=== PATIENT | male | born 1970 | race Caucasian/White ===

== ENCOUNTER 2017-01-17 13:27 | Emergency (ER) ==
[2017-01-17 13:39] VITALS: BP 145/90; TEMP 98.4; BMI 33.9
[2017-01-17] MEDS ORDERED: ZOFRAN ODT PO STA (13:55)
[2017-01-17] MEDS ORDERED: SILVADENE CREAM TP STA (13:55)
[2017-01-17] MEDS ORDERED: MORPHINE 4 MG/ML SYRINGE IVP STA (13:55)
--- NOTE | 2017-01-17 13:57 | ED.PDOC ---
General ED Provider: Dr. PARISH SOLORZANO Chief Complaint: Burn Stated Complaint: Patient is a 46 year old who while making elderberry jelly and juice its hot contents dripped onto the top of ther right foot. He was wareing sandels. He states that it formed a blister immediatly, he soaked the foot in cold water and cut off the skin fromt he wound and applied Triple antibiotics ointment and applied dressing on it. Time Seen by Physician: 13:30 Mode of Arrival: Walk-In Information Source: Patient Exam Limitations: No limitations Nursing and Triage Documentation Reviewed and Agree: Yes Skin Complaint Exam - Burn Injury Complaint/Exam Onset/Duration: 1 hour Length Of Exposure: secs Initial Severity: Severe Current Severity: Severe Character: Scald Associated Signs and Symptoms: Denies: Short of air, Cough, Chest pain, Vision abnormality, LOC/Duration, Additional trauma Related History: Denies: Similar episdode, Occupational injury Skin: Wet Singed Facial Hair: No Singed Nasal Hair: No Stridor Present: No Respiratory Distress Present: No Circumferential Involvement to Trunk: No Circumferential Involvement to Extremity: No Entrance Wound Present: No Exit Wound Present: No Burn Location (Adult): Right Leg (Front) (Dorsum of the right foot 40% of the foot ) Front/Back of Body, Lg ([place]): 1 - 40 % of the foot anterioly Estimated Burned Body Surface Area: 9 Weight: 250 lb Weight (Calculated Kilograms): [phone] Initial Fluid Requirement First 8 Hours: [id number] Total Fluid Requirement First 24 Hours: [id number] Differential Diagnoses: Contact Thermal Burn Review of Systems - Review Of Systems Constitutional: Reports: No symptoms Eyes: Reports: No symptoms Ears, Nose, Mouth, Throat: Reports: No symptoms Respiratory: Reports: No symptoms Cardiac: Reports: No symptoms GI: Reports: No symptoms : Reports: No symptoms Musculoskeletal: Reports: No symptoms Skin: Reports: Other (Dorsum of the right foot. ) Neurological: Reports: No symptoms Endocrine: Reports: No symptoms Hematologic/Lymphatic: Reports: No symptoms All Other Systems: Reviewed and Negative Past Medical History - Past Medical History Previously Healthy: Yes Endocrine: Reports: None Cardiovascular: Reports: Hypertension Respiratory: Reports: None Hematological: Reports: None Gastrointestinal: Reports: None Genitourinary: Reports: None Neuro/Psych: Reports: None Musculoskeletal: Reports: Arthritis, Gout Cancer: Reports: None - Surgical History General Surgical History: Reports: None - Family History Family History: Reports: None - Social History Smoking Status: Current every day smoker, Heavy tobacco smoker Hx Substance Use: No Alcohol Screening: None - Immunizations Tetanus Shot up to Date: Yes Physical Exam - Physical Exam Appearance: Ill-appearing Ill-appearing: Moderate Pain Distress: Severe Eyes: Conjunctiva clear Neck: Supple Respiratory: Airway patent, Breath sounds clear, Breath sounds equal, Respirations nonlabored Cardiovascular: RRR, Pulses normal, No rub, No murmur GI/: Soft, Nontender, No masses, Bowel sounds normal, No Organomegaly Musculoskeletal: Normal strength, ROM intact, No edema, No calf tenderness Skin: Warm, Dry Neurological: Sensation intact, Motor intact, Reflexes intact, Cranial nerves intact, Alert, Oriented Psychiatric: Affect appropriate, Mood appropriate Re-Evaluation - Re-Evaluation Time of Re-Evaluation: 14:44 Status: Improved Vital Signs Stable: Yes Pain Level: much improved Critical Care Note - Critical Care Note Total Time (mins): 0 Course - Course Orders, Labs, Meds: Orders Category Date Time Status Morphine Sulfate [Morphine 4 mg/ml Syringe] MEDS 01/17/17 14:04 Discontinued 4 mg IM ONCE STA Ondansetron [Zofran Odt] MEDS 01/17/17 13:55 Discontinued 4 mg PO ONCE STA Silver Sulfadiazine [Silvadene Cream] MEDS 01/17/17 13:55 Discontinued 1 applic TP ONCE STA Medications Discontinued Medications Generic Name Dose Route Start Last Admin Trade Name Freq PRN Reason Stop Dose Admin Morphine Sulfate 4 mg 01/17/17 14:04 01/17/17 14:08 Morphine 4 Mg/Ml Syringe IM 01/17/17 14:05 4 mg ONCE STA Administration Ondansetron HCl 4 mg 01/17/17 13:55 01/17/17 14:07 Zofran Odt PO 01/17/17 13:56 4 mg ONCE STA Administration Silver Sulfadiazine 1 applic 01/17/17 13:55 08/26/17 14:09 Silvadene Cream TP 01/17/17 13:56 1 applic ONCE STA Administration Vital Signs: Temp Pulse Resp BP Pulse Ox 01/17/17 13:27 98.4 F 100 H 20 145/90 H 98 Departure - Departure Time of Disposition: 14:44 Disposition: HOME SELF-CARE Discharge Problem: Burn Instructions: Second Degree Burn (ED) Condition: Fair Pt referred to PMD for follow-up: Yes Additional Instructions: Change dressing twice a day and Apply Silvadene with dressing changes take mediations as prescribed. Prescriptions: Hydrocodone/Acetaminophen [[place] 5-325 Tablet] 1 tab PO Q6HR PRN #20 tablet PRN Reason: PAIN Ibuprofen [Motrin] 600 mg PO Q6H PRN #30 tablet PRN Reason: Analgesia Allergies/Adverse Reactions: Allergies Penicillins Adverse Reaction (Verified 01/17/17 13:33) simvastatin Adverse Reaction (Verified 01/17/17 13:33) Home Medications: Ambulatory Orders Allopurinol 150 mg PO DAILY 01/17/17 Hydrocodone/Acetaminophen [[place] 5-325 Tablet] 1 tab PO Q6HR PRN #20 tablet Ibuprofen [Motrin] 600 mg PO Q6H PRN #30 tablet 01/17/17 Metoprolol Succinate 25 mg PO DAILY 01/17/17 Zolpidem Tartrate [Ambien] 10 mg PO BEDTIME 01/17/17 Disposition Discussed With: Patient, Family
[2017-01-17] MEDS ORDERED: MORPHINE 4 MG/ML SYRINGE IM STA (14:04)
== END 2017-01-17 15:01 | disposition home or self-care (01) ==
LOC: ED 13:27
DX: T25.221A Burn of second degree of right foot, initial encounter (principal); X12.XXXA Contact with other hot fluids, initial encounter; F17.210 Nicotine dependence, cigarettes, uncomplicated
CPT/HCPCS: 96372; 99283